=== PATIENT | female | born 1990 | race Caucasian/White ===

== ENCOUNTER 2018-08-13 22:06 | Emergency (ER) | payer MEDICAID, SELFPAY ==
[2018-08-13 22:09] VITALS: BP 119/73; PULSE 86; RESP 16; TEMP 36.6; O2SAT 100
--- NOTE | 2018-08-13 22:19 | W.ED.GENAD ---
Discharge Plan Disposition Patient Disposition: HOME Condition: Good Discharge Details Chief Complaint: EarProblem Clinical Impression: Sinusitis, Acute ear pain, Nasal polyp Primary Care Provider: None,None ED Provider: Mark Katz Home Meds and New Rx's Prescriptions: No Action multivitamin Tablet 1 tab PO DAILY RF: 0 penicillin V potassium 250 mg Tablet 1 tab PO DAILY RF: 0 Discharge Instructions Instructions: Sinusitis (ED) Additional Instructions: Please take Tylenol and Motrin for pain. Please take Claritin, Benadryl, ranitidine [id number] for sinus relief. We will set up an appointment with ENT for you. If you do not hear back from the ENT office within 2 weeks please call [facility]. If you notice any worsening of your symptoms, or any new symptoms such as drainage from your ear vomiting, diarrhea, fever, chills, shortness of breath, chest pain, numbness, weakness, or fainting , please return immediately to the emergency department for reevaluation. Please follow up with your primary care provider as soon as possible for reassessment and reevaluation. As always, it was a pleasure participating in your medical care today. Medical Decision Making This is a 27-year-old female who presents with signs and symptoms consistent with a mild upper respiratory infection, mild serous fluid behind the right tympanic membrane, and a history of mild sinus drainage 1 hour prior to arrival. No evidence of trauma. Vital signs are reassuring, no evidence of significant infection, purulent otitis media, or other abnormalities. Minimal tenderness on percussion of right maxillary sinus. With no red flags on history of physical exam, reassuring vital signs, and no other abnormalities I feel she can be safely discharged home with recommendation for [id number] antihistamines. Additionally because of the patient's nasal polyp and her risk factors of chronic allergies and asthma we will refer to ENT for follow-up evaluation and potential medication versus removal. We discussed red flags for which to return. I have extensively reviewed the treatment plan and discharge instructions with the patient and their family. I have addressed all patient concerns at this time. The patient and family was made aware of what symptoms to monitor for that would warrant a return to the emergency department. Discussed the plan with the patient and family, they demonstrate verbal understanding and agreement with our assessment and plan at this time. HPI General Date/Time Provider Initiated Documentation: 08/13/18 22:07. HPI Narrative: This is a 27-year-old female who presents today for evaluation of right ear pain and right nasal drainage. Patient states that for the last 2 days she has had mild pain in the right ear, however today she states that roughly 1 hour prior to arrival she suddenly noticed a very watery yellow thin salty tasting drainage coming from her right nostril. Out of concern for this she came in to be checked out. She does admit to mild right-sided mid sinus pain. She denies any headache, neck pain or neck stiffness. She denies any sore throat or difficulty drinking or swallowing. She denies any cough, fever or chills. Patient has been taking penicillin for the last week and a half for a dental infection and still has doses left. Past medical history is positive for chronic allergies, asthma. Denies any other complaints at this time. she denies any IV or illicit drug use. She denies any pertinent family history. Related Data Home Medications Medication Instructions Recorded Confirmed multivitamin 1 tab PO DAILY 08/13/18 08/13/18 penicillin V potassium 1 tab PO DAILY 08/13/18 Allergies Allergy/AdvReac Type Severity Reaction Status Date / Time seasonal Allergy Uncoded 08/13/18 22:11 General Stated Complaint: EarProblem BHAVIN: 4 Review of Systems Review of Systems All systems reviewed & are unremarkable except as noted in HPI and below PFSH Social History Smoking/Tobacco Use Status: Never Exam Narrative Exam Narrative: 1.Const: Well-nourished, Well-developed, appearing stated age 2.Eyes: PERRL, no conjunctival injection, and symmetrical lids. 3.ENT: Atraumatic external nose and ears. Moist MM. Neck: Symmetric, trachea midline, No thyromegaly. Patient demonstrates notable nasal polyp in the right nose. Mild congestion. No evidence of drainage or significant infection. Mucosa is pink and moist. Posterior oropharynx demonstrates no erythema, tonsillar exudate, or other abnormality. Right tympanic membrane demonstrates mild amounts of serous fluid, no evidence of purulent drainage. No evidence of rupture, no evidence of purulence for the fluid itself. No signs of infection, erythema, or edema. Osseous landmarks are well differentiated. Left tympanic membrane is normal with no signs of fluid patient demonstrates good movement of cervical neck. There is no nuchal rigidity, no nuchal tenderness. Patient is able to flex the neck without any difficulty or significant pain. Negative Kernig's and Brudzinski sign. 4.CVS: +S1/S2, No murmurs or gallops. Peripheral pulses 2+ and equal in all extremities. Brisk capillary refill in all extremities. 5.RESP: Unlabored respiratory effort. Clear to auscultation bilaterally. No wheezes rales or rhonchi 6.GI: Soft, Nontender/Nondistended, No hepatosplenomegaly. No guarding or rebound. 7.MSK: Normocephalic/Atraumatic, Extremities w/o deformity or ttp No cyanosis or clubbing, Normal movement of all extremities 8.Skin: Warm, Dry. No rashes or lesions. 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 Sensation grossly intact, no focal neurologic deficits. 10.Psych: (AAO) x3. Appropriate mood and affect Course Vital Signs Temperature 36.6 C 08/13/18 22:09 Pulse 86 08/13/18 22:09 Respiratory Rate 16 08/13/18 22:09 Blood Pressure 119/73 08/13/18 22:09 Pulse Oximetry 100 08/13/18 22:09 Temperature 36.6 C 08/13/18 22:09 Temperature Source Skin 08/13/18 22:09 Pulse 86 08/13/18 22:09 Respiratory Rate 16 08/13/18 22:09 Blood Pressure 119/73 08/13/18 22:09 Blood Pressure Position Sitting 08/13/18 22:09 Pulse Oximetry 100 08/13/18 22:09 Oxygen Delivery Method Room Air 08/13/18 22:09 Oxygen Flow Rate 0 08/13/18 22:09
[2018-08-13] MEDS: Ibuprofen 800 MG TAB PO (22:28)
[2018-08-13] MEDS: Acetaminophen 500 MG TAB 1000 MG PO (22:28)
--- NOTE | 2018-08-13 22:31 | ED.GENADUL_ITS ---
Discharge Plan Disposition Patient Disposition: HOME Condition: Good Discharge Details Chief Complaint: EarProblem Clinical Impression: Sinusitis, Acute ear pain, Nasal polyp Primary Care Provider: None,None ED Provider: Mark Katz Home Meds and New Rx's Prescriptions: No Action multivitamin Tablet 1 tab PO DAILY RF: 0 penicillin V potassium 250 mg Tablet 1 tab PO DAILY RF: 0 Discharge Instructions Instructions: Sinusitis (ED) Additional Instructions: Please take Tylenol and Motrin for pain. Please take Claritin, Benadryl, ranitidine [id number] for sinus relief. We will set up an appointment with ENT for you. If you do not hear back from the ENT office within 2 weeks please call [facility]. If you notice any worsening of your symptoms, or any new symptoms such as drainage from your ear vomiting, diarrhea, fever, chills, shortness of breath, chest pain, numbness, weakness, or fainting , please return immediately to the emergency department for reevaluation. Please follow up with your primary care provider as soon as possible for reassessment and reevaluation. As always, it was a pleasure participating in your medical care today. Medical Decision Making This is a 27-year-old female who presents with signs and symptoms consistent with a mild upper respiratory infection, mild serous fluid behind the right tympanic membrane, and a history of mild sinus drainage 1 hour prior to arrival. No evidence of trauma. Vital signs are reassuring, no evidence of significant infection, purulent otitis media, or other abnormalities. Minimal tenderness on percussion of right maxillary sinus. With no red flags on history of physical exam, reassuring vital signs, and no other abnormalities I feel she can be safely discharged home with recommendation for qldb-nct-[id number] antihistamines. Additionally because of the patient's nasal polyp and her risk factors of chroni c allergies and asthma we will refer to ENT for follow-up evaluation and potential medication versus removal. We discussed red flags for which to return. I have extensively reviewed the treatment plan and discharge instructions with the patient and their family. I have addressed all patient concerns at this time. The patient and family was made aware of what symptoms to monitor for that would warrant a return to the emergency department. Discussed the plan with the patient and family, they demonstrate verbal understanding and agreement with our assessment and plan at this time. HPI General Date/Time Provider Initiated Documentation: 08/13/18 22:07 . HPI Narrative: This is a 27-year-old female who presents today for evaluation of right ear pain and right nasal drainage. Patient states that for the last 2 days she has had mild pain in the right ear, however today she states that roughly 1 hour prior to arrival she suddenly noticed a very watery yellow thin salty tasting drainage coming from her right nostril. Out of concern for this she came in to be checked out. She does admit to mild right-sided mid sinus pain. She denies any headache, neck pain or neck stiffness. She denies any sore throat or difficulty drinking or swallowing. She denies any cough, fever or chills. Patient has been taking penicillin for the last week and a half for a dental infection and still has doses left. Past medical history is positive for chronic allergies, asthma. Denies any other complaints at this time. she denies any IV or illicit drug use. She denies any pertinent family history. Related Data Home Medications Medication Instructions Recorded Confirmed multivitamin 1 tab PO DAILY 08/13/18 08/13/18 penicillin V potassium 1 tab PO DAILY 08/13/18 Allergies Allergy/AdvReac Type Severity Reaction Status Date / Time seasonal Allergy Uncoded 08/13/18 22:11 General Stated Complaint: EarProblem BHAVIN: 4 Review of Systems Review of Systems All systems reviewed & are unremarkable except as noted in HPI and below PFSH Social History Smoking/Tobacco Use Status: Never Exam Narrative Exam Narrative: 1.Const: Well-nourished, Well-developed, appearing stated age 2.Eyes: PERRL, no conjunctival injection, and symmetrical lids. 3.ENT: Atraumatic external nose and ears. Moist MM. Neck: Symmetric, trachea midline, No thyromegaly. Patient demonstrates notable nasal polyp in the right nose. Mild congestion. No evidence of drainage or significant infection. Mucosa is pink and moist. Posterior oropharynx demonstrates no erythema, tonsillar exudate, or other abnormality. Right tympanic membrane demonstrates mild amounts of serous fluid, no evidence of purulent drainage. No evidence of rupture, no evidence of purulence for the fluid itself. No signs of infection, erythema, or edema. Osseous landmarks are well differentiated. Left tympanic membrane is normal with no signs of fluid patient demonstrates good movement of cervical neck. There is no nuchal rigidity, no nuchal tenderness. Patient is able to flex the neck without any difficulty or significant pain. Negative Kernig's and Brudzinski sign. 4.CVS: +S1/S2, No murmurs or gallops. Peripheral pulses 2+ and equal in all extremities. Brisk capillary refill in all extremities. 5.RESP: Unlabored respiratory effort. Clear to auscultation bilaterally. No wheezes rales or rhonchi 6.GI: Soft, Nontender/Nondistended, No hepatosplenomegaly. No guarding or rebound. 7.MSK: Normocephalic/Atraumatic, Extremities w/o deformity or ttp No cyanosis or clubbing, Normal movement of all extremities 8.Skin: Warm, Dry. No rashes or lesions. 9.Neuro: subcontract administrator II-XII grossly intact. Sensation grossly intact, no focal neurologic deficits. 10.Psych: (AAO) x3. Appropriate mood and affect Course Vital Signs Temperature 36.6 C 08/13/18 22:09 Pulse 86 08/13/18 22:09 Respiratory Rate 16 08/13/18 22:09 Blood Pressure 119/73 08/13/18 22:09 Pulse Oximetry 100 08/13/18 22:09 Temperature 36.6 C 08/13/18 22:09 Temperature Source Skin 08/13/18 22:09 Pulse 86 08/13/18 22:09 Respiratory Rate 16 08/13/18 22:09 Blood Pressure 119/73 08/13/18 22:09 Blood Pressure Position Sitting 08/13/18 22:09 Pulse Oximetry 100 08/13/18 22:09 Oxygen Delivery Method Room Air 08/13/18 22:09 Oxygen Flow Rate 0 08/13/18 22:09
--- NOTE | 2018-08-14 09:19 | PDOC.ERCMPRO ---
Care Management Progress Note 08/14-Dr. Katz requested assistance with an ENT f/u for nasal polyps within one month. Referral faxed to ENT this am.
== END 2018-08-13 22:36 | disposition home or self-care (01) ==
LOC: ER 22:35
PROVIDERS: Emergency Provider Student in an Organized Health Care Education/Training Program
DX: J01.90 Acute sinusitis, unspecified (principal); H92.01 Otalgia, right ear; J33.9 Nasal polyp, unspecified
CPT/HCPCS: 99282

== ENCOUNTER 2019-11-24 04:03 | Emergency (ER) | payer SELFPAY ==
[2019-11-24 04:09] VITALS: BP 104/68; PULSE 93; RESP 16; TEMP 36.7; O2SAT 98
--- NOTE | 2019-11-24 04:27 | ED.GENADUL_ITS ---
Discharge Plan Disposition Patient Disposition: HOME Condition: Stable Discharge Details Chief Complaint: DentalOral Clinical Impression: Dental infection Primary Care Provider: None,None ED Provider: Hayes Sharp Home Meds and New Rx's Prescriptions: New penicillin V potassium 500 mg tablet 500 mg PO QID Qty: 27 RF: 0 No Action multivitamin Tablet 1 tab PO DAILY RF: 0 Discharge Instructions Instructions: Dental Abscess (ED) Additional Instructions: Please take ibuprofen over the counter. Take 600mg by mouth every 6 hours as needed for pain. Please take acetaminophen (tylenol) - 650mg every 6 hours by mouth as needed for pain. Please take penicillin as prescribed. Be sure to complete the full course. Please follow-up with your dentist. Call today. Return to the ER for any worsening or new concerning symptoms. Discharge Data Discharge Date/Time-TO BE ENTERED AT DEPARTURE: 11/24/19 05:30 Medical Decision Making 29-year-old female here with left upper molar chronic dental decay, now with dental infection. Patient is not septic appearing. No indication for incision and drainage. Patient was given a dose of penicillin, ibuprofen and topical benzocaine. Periapical dental block was performed: Consent: verbal, indication: Pain, 1 mL lidocaine 1% was injected superior left posterior molar gumline, patient did not tolerate procedure well and refused additional injection. Plan to treat with full course of penicillin and have the patient follow-up with her dentist. I explained importance of timely follow-up. She plans to call her dentist later today when the office opens. I encouraged to return to the ED immediately for any worsening or new concerning symptoms. Usual and customary discharge instructions were provided. HPI General Mode of arrival: ambulatory . Date/Time Provider Initiated Documentation: 11/24/19 04:14 . Limitations to Documentation: no limitations . Information obtained by: patient . HPI Narrative: 29-year-old female presents with chief complaint of dental pain. Patient notes left upper molar dental pain that started yesterday morning and persisted all day yesterday. Much worse this morning. Pain is described as a severe ache. She has associated mild left facial swelling. No associated fever. Patient notes that she has chronic intermittent issues with left upper molar. It has been infected in the past. Last infection was about a year ago responded to antibiotics. Related Data Home Medications Medication Instructions Recorded Confirmed multivitamin 1 tab PO DAILY 08/13/18 11/24/19 penicillin V potassium 500 mg PO QID #27 tab 11/24/19 Previous Rx's Medication Instructions Recorded penicillin V potassium 500 mg PO QID #27 tab 11/24/19 Allergies Allergy/AdvReac Type Severity Reaction Status Date / Time seasonal Allergy Uncoded 11/24/19 04:13 General Stated Complaint: DentalOral BHAVIN: 5 Review of Systems Constitutional Constitutional: Denies fever(s) ENT Ears, Nose, Mouth, and Throat: Reports as per HPI [facility] Medical History Sinusitis with nasal polyps (Acute) Social History Smoking/Tobacco Use Status: Never Alcohol Intake: never Drug use: Never Do you feel safe at home: Yes Do you feel safe in your relationship?: Yes Exam Const General: cooperative and no acute distress HENMT Face and sinus: no fluctuance and no sinus tenderness Mouth: moist mucous membranes and other (No trismus) Teeth and gingiva: other (Chronic dental decay left upper molar, no fluctuance, ttp) Throat: posterior oropharynx normal Eyes EOM: EOM intact bilaterally Neck Neck: No submandibular swelling Lymphatic: no lymphadenopathy noted Neuro General: patient alert and patient awake Course Vital Signs Vital signs: Vital Signs Temperature 36.7 C 11/24/19 04:09 Pulse 93 H 11/24/19 04:09 Respiratory Rate 16 11/24/19 04:09 Blood Pressure 104/68 11/24/19 04:09 Pulse Oximetry 98 11/24/19 04:09 Temperature 36.7 C 11/24/19 04:09 Pulse 93 H 11/24/19 04:09 Respiratory Rate 16 11/24/19 04:09 Respiratory Effort Non-Labored 11/24/19 04:14 Blood Pressure 104/68 11/24/19 04:09 Pulse Oximetry 98 11/24/19 04:09 Pain Level 10 11/24/19 04:14
[2019-11-24] MEDS: Penicillin V POTASSIUM 500 MG TAB PO (04:31)
[2019-11-24] MEDS: Ibuprofen 600 MG TAB PO (04:31)
[2019-11-24] MEDS: Benzocaine 20% Gel 30 GM JAR MM (04:32)
[2019-11-24] MEDS: Lidocaine 1% Multi-Dose 50 ML VIAL IJ (05:28)
== END 2019-11-24 05:30 | disposition home or self-care (01) ==
PROVIDERS: Emergency Provider Student in an Organized Health Care Education/Training Program
DX: R22.0 Localized swelling, mass and lump, head (principal); K04.7 Periapical abscess without sinus
CPT/HCPCS: 64450

== ENCOUNTER 2019-11-24 23:06 | Emergency (ER) | payer SELFPAY ==
[2019-11-24 23:10] VITALS: BP 107/75; PULSE 69; RESP 16; TEMP 36.6; O2SAT 98
--- NOTE | 2019-11-24 23:27 | ED.GENADUL_ITS ---
Discharge Plan Disposition Patient Disposition: HOME Condition: Stable Discharge Details Chief Complaint: DentalOral Clinical Impression: Dental infection Primary Care Provider: None,None ED Provider: Jose Nascimento Home Meds and New Rx's Prescriptions: New clindamycin HCl 300 mg capsule 300 mg PO Q8H Qty: 30 RF: 0 No Action multivitamin Tablet 1 tab PO DAILY RF: 0 penicillin V potassium 500 mg tablet 500 mg PO QID Qty: 27 RF: 0 Discharge Instructions Instructions: Dental Abscess (ED) Additional Instructions: I recommend alternate between warm and cool compresses every 2 hours for 20 minutes. Salt water gargles as tolerated. You have only been on the penicillin for less than 24 hours and I believe it is perfectly reasonable to continue the penicillin for the next 24-36 hours and reassess. If you are not getting any improvement at that timeframe I do believe starting clindamycin is reasonable. Hjij-hbz-kltyxsm Tylenol and/or Motrin as directed for discomfort. Please watch for new or worsening symptoms and return to the ER for any concerns. I do recommend reaching out to your dentist tomorrow for prompt outpatient reevaluation Medical Decision Making Patient is presenting twice in the past 24 hours for a worsening dental infection. She appears well, nontoxic. She is afebrile, satting 98% on room air. No evidence of trismus. There is no obvious pointing abscess. She is able to speak in full sentences, no respiratory distress, manages her own secretions no difficulty. Had a long discussion regarding her symptoms. Her dentist did recommend reevaluation and possibly changing her antibiotics. I did explain that penicillin VK was perfectly appropriate and it is very early in her treatment to know whether or not the antibiotic will be appropriate or not. Discussed options such as continuing her penicillin VK for the next 24-36 hours, or discontinuing right now initiating clindamycin therapy. She will continue the penicillin and I will provide a prescription for clindamycin so that she is not improving she has the prescription. We discussed ulcerating between cool and/or warm compress as well as [id number] medication such as Tylenol and/or Motrin. She was comfortable this plan and had no additional questions or concerns. We discussed the importance of returning to the ER for new or worsening symptoms, otherwise contacting her dentist tomorrow. Medical Records Medical records reviewed: Yes I reviewed the patient's medical records. HPI General Mode of arrival: ambulatory . Date/Time Provider Initiated Documentation: 11/24/19 23:16 . Limitations to Documentation: no limitations . Information obtained by: patient . HPI Narrative: This is a 29-year-old female presenting for day and 1/2-2-day history of left upper dental discomfort. She was seen late last night early this morning for the same, placed on penicillin VK for dental infection. Reports that she has taken 3 or 4 doses so far. Since that time she feels as though the pain is getting worse and it now appears to be more swollen. She feels a mild global headache as well as nausea without vomiting. She reports that she did look up her symptoms on the Internet and reports that she does not want to from a dental infection. She contacted her dentist this evening who advised coming to the ER for reevaluation. She denies fever, chest pain, shortness of breath. She has no difficulty speaking or swallowing. Related Data Home Medications Medication Instructions Recorded Confirmed multivitamin 1 tab PO DAILY 08/13/18 11/24/19 clindamycin HCl 300 mg PO Q8H #30 cap 11/24/19 penicillin V potassium 500 mg PO QID #27 tab 11/24/19 11/24/19 Previous Rx's Medication Instructions Recorded clindamycin HCl 300 mg PO Q8H #30 cap 11/24/19 penicillin V potassium 500 mg PO QID #27 tab 11/24/19 Allergies Allergy/AdvReac Type Severity Reaction Status Date / Time seasonal Allergy Uncoded 11/24/19 23:13 General Stated Complaint: DentalOral BHAVIN: 4 Review of Systems Constitutional Constitutional: Denies fever(s) and Reports headache(s) Eyes Eyes: Denies eye discharge ENT Ears, Nose, Mouth, and Throat: Reports headache(s), Denies neck pain, Denies sinus pressure and Denies sore throat Cardiovascular Cardiovascular: Denies chest pain and Denies dyspnea Respiratory Respiratory: Denies cough and Denies dyspnea Gastrointestinal Gastrointestinal: Denies abdominal pain, Reports nausea and Denies vomiting Musculoskeletal Musculoskeletal: Denies neck pain Integumentary/Breasts Skin/Breast: Denies rash Neurologic Neurologic: Reports headache(s) [facility] Medical History Sinusitis with nasal polyps (Acute) Social History Smoking/Tobacco Use Status: Never Alcohol Intake: never Drug use: Never Substance use type: does not use Do you feel safe at home: Yes Do you feel safe in your relationship?: Yes Exam Const General: cooperative, healthy appearing, comfortable, no acute distress and anxious Orientation: alert, awake and oriented x3 HENMT Head: normal to inspection, normocephalic and atraumatic Ears: external ears normal, TM's normal bilaterally and EAC's normal General nose exam: external nose normal Face images: 1. Minimal swelling, discomfort. There is no erythema, induration, fluctuance or pointing abscess. Mouth: moist mucous membranes Teeth and gingiva: poor dentition (Throughout) and other (Left superior front molar, decayed to gumline, tenderness, no trismus) Throat: posterior oropharynx normal Eyes Conjunctivae: conjunctivae normal Neck Neck: normal visual inspection, full ROM, trachea midline, supple and lymphadenopathy (Left cervical, superior, anterior, shotty) Resp Effort & Inspection: normal respiratory effort and able to speak in complete sentences Auscultation: clear to auscultation bilaterally Cardio Rate: regular rate Rhythm: regular rhythm Skin General skin exam: no rashes or lesions noted Neuro General: patient alert, patient awake, moves all extremities and no focal motor deficits Sensory Exam: no sensory deficits noted Psych Appearance: grossly normal Mental Status: mental status grossly normal Course Vital Signs Vital signs: Vital Signs Temperature 36.6 C 11/24/19 23:10 Pulse 69 11/24/19 23:10 Respiratory Rate 16 11/24/19 23:10 Blood Pressure 107/75 11/24/19 23:10 Pulse Oximetry 98 11/24/19 23:10 Temperature 36.6 C 11/24/19 23:10 Temperature Source Oral 11/24/19 23:10 Pulse 69 11/24/19 23:10 Respiratory Rate 16 11/24/19 23:10 Respiratory Effort Non-Labored 11/24/19 23:13 Blood Pressure 107/75 11/24/19 23:10 Blood Pressure Position Sitting 11/24/19 23:10 Pulse Oximetry 98 11/24/19 23:10 Oxygen Delivery Method Room Air 11/24/19 23:10 Oxygen Flow Rate 0 11/24/19 23:10 Pain Level 6 11/24/19 23:10
[2019-11-24 23:46] VITALS: BP 107/75; PULSE 69; RESP 16; TEMP 36.6; O2SAT 98
--- NOTE | 2019-11-25 09:39 | NUR.NOTE ---
Nursing Note: Patient called stating that she was having blood fluid from her left nare and more swelling. Spoke with VIKRAM Jean and she stated that she needed to return. I told the patient this and she stated that she needed to find someone to take care of her toddler before coming in. Lorena Flores.
== END 2019-11-24 23:45 | disposition home or self-care (01) ==
PROVIDERS: Emergency Provider Physician Assistant
DX: R22.0 Localized swelling, mass and lump, head (principal); K04.7 Periapical abscess without sinus
CPT/HCPCS: 99283

== ENCOUNTER 2019-11-25 11:30 | Emergency (ER) | payer SELFPAY ==
[2019-11-25 11:37] VITALS: BP 108/67; PULSE 76; RESP 14; TEMP 37; O2SAT 98
--- NOTE | 2019-11-25 12:00 | ED.GENADUL_ITS ---
Discharge Plan Disposition Patient Disposition: HOME Condition: Stable Discharge Details Chief Complaint: DentalOral Clinical Impression: Dental infection Primary Care Provider: None,None ED Provider: Dyan Plata Home Meds and New Rx's Prescriptions: New clindamycin HCl 150 mg capsule 450 mg PO TID 7 Days Qty: 63 RF: 0 tramadol 50 mg tablet 50 mg PO Q6H PRN (Reason: pain) Qty: 10 RF: 0 Continued multivitamin Tablet 1 tab PO DAILY RF: 0 Mirena 20 mcg/24 hours (5 yrs) 52 mg Intrauterine Device 1 device INTRAUTERINE DIRECTED RF: 0 Discontinued clindamycin HCl 300 mg capsule 300 mg PO Q8H Qty: 30 RF: 0 penicillin V potassium 500 mg tablet 500 mg PO QID Qty: 27 RF: 0 Discharge Instructions Instructions: Dental Abscess (ED) Additional Instructions: Due to your level of pain, it is difficult to fully assess for a dental abscess, however there was no obvious dental abscess on exam today. Stop taking your penicillin today. You were given a new prescription for clindamycin with a higher dose in addition to a prescription for pain medication called tramadol which you can drop off today. You were also given a list of local dentists to call for follow-up. Once your infection is cleared, you will likely need your tooth extracted. Return immediately to the emergency department if you develop any worsening or concerning symptoms such as fevers, difficulty swallowing, worsening facial swelling or pain. Discharge Data Discharge Date/Time-TO BE ENTERED AT DEPARTURE: 11/25/19 12:36 Discharge Physician: Dyan Plata Medical Decision Making 29-year-old female currently on penicillin for dental infection presents with worsening symptoms of facial swelling and pain. No abscess noted on ED visit yesterday. Vitals within normal limits. Patient tearful but she appears nontoxic. She is speaking in full sentences. Airway intact. No submandibular swelling. No dental abscess noted. She has significant tenderness to palpation around problem tooth with surrounding edema but no obvious abscess noted. Discussed with patient that due to her level of pain it is difficult to fully palpate but that I do not feel or see an obvious abscess. Patient states she does not want any injections at this time as she could not tolerate it yesterday due to level of pain. Patient appears uncomfortable, will treat with p.o. pain medication. Urine test negative. She has a ride home. Patient advised to stop the penicillin and start the clindamycin. She was given doses here as well as for home. Care management discussed with patient at bedside as she expressed stress with lack of insurance and payment. She was given community connections and dentist referrals. Usual and customary return precautions given prior to discharge. Medical Records Medical records reviewed: Yes I reviewed the patient's medical records. HPI General Mode of arrival: ambulatory . Date/Time Provider Initiated Documentation: 11/25/19 11:32 . Limitations to Documentation: no limitations . Information obtained by: patient . HPI Narrative: Patient is a 29-year-old female who presents for reevaluation of dental infection as her symptoms are w orsening. Patient was seen here yesterday chief operator lock tender for a dental pain and diagnosed with a dental infection and started on penicillin of which she has taken several doses since yesterday. She returned last evening for worsening symptoms and was advised to continue the penicillin as there was no evidence of abscess. She was also given a prescription for clindamycin yesterday evening and was advised to start this if symptoms worsened. Patient returns today with worsening facial swelling and pain as well as a report of bloody discharge from left nares which is since resolved. She denies any fever. She has been able to eat and drink. She denies any neck pain. Related Data Home Medications Medication Instructions Recorded Confirmed multivitamin 1 tab PO DAILY 08/13/18 11/25/19 Mirena 1 device INTRAUTERINE DIRECTED 11/25/19 11/25/19 clindamycin HCl 450 mg PO TID 7 Days #63 cap 11/25/19 tramadol 50 mg PO Q6H PRN #10 tab 11/25/19 Previous Rx's Medication Instructions Recorded clindamycin HCl 450 mg PO TID 7 Days #63 cap 11/25/19 tramadol 50 mg PO Q6H PRN #10 tab 11/25/19 Allergies Allergy/AdvReac Type Severity Reaction Status Date / Time seasonal Allergy Uncoded 11/25/19 11:47 General Stated Complaint: DentalOral BHAVIN: 4 Review of Systems All systems reviewed & are unremarkable except as noted in HPI and below Constitutional Constitutional: Reports as per HPI, Denies chills and Denies fever(s) Eyes Eyes: Denies blurry vision ENT Ears, Nose, Mouth, and Throat: Reports dental pain, Denies dizziness, Reports otalgia, Denies sore throat and Denies throat swelling Cardiovascular Cardiovascular: Denies chest pain and Denies dyspnea Respiratory Respiratory: Denies cough and Denies dyspnea Gastrointestinal Gastrointestinal: Denies abdominal pain, Denies diarrhea and Denies vomiting Genitourinary Genitourinary: Denies hematuria and Denies dysuria Musculoskeletal Musculoskeletal: Denies back pain and Denies numbness Integumentary/Breasts Skin/Breast: Denies lesions and Denies rash Neurologic Neurologic: Denies dizziness, Denies localized weakness and Denies numbness Allergic/Immunologic Allergic/Immunologic: Denies throat swelling [facility] Social History Smoking/Tobacco Use Status: Never Alcohol Intake: never Drug use: Never Substance use type: does not use Do you feel safe at home: Yes Do you feel safe in your relationship?: Yes Exam Const General: cooperative, healthy appearing and no acute distress HENMT Head: normal to inspection Ears: hearing grossly normal bilaterally, external ears normal and TM's normal bilaterally General nose exam: external nose normal Face images: 1. Mild to moderate L facial swelling and tenderness to palpation. No erythema, edema, fluctuance, induration, or rash. Mouth: oral mucosae normal Teeth and gingiva: caries and poor dentition Teeth image: 1. Only base of problem tooth remaining and decayed. There is significant surrounding edema and tenderness around base of tooth mucosa. There is no obvious fluctuance or induration or obvious abscess noted. There is no pus drainage or bleeding noted around tooth. Throat: posterior oropharynx normal Eyes General: appearance normal, both eyes and all related structures Neck Neck: normal visual inspection, no lymphadenopathy, no meningeal signs, trachea midline, supple, no anterior neck swelling and No submandibular swelling Resp Effort & Inspection: normal respiratory effort and able to speak in complete sen tences Cardio Rate: regular rate Skin General skin exam: no rashes or lesions noted Neuro General: patient alert, patient awake and patient oriented x3 Motor: muscle tone normal throughout Extrem General: normal to inspection and full ROM Psych Appearance: grossly normal Affect: normal affect Course Vital Signs Vital signs: Vital Signs Temperature 98.6 F 11/25/19 11:37 Pulse 76 11/25/19 11:37 Respiratory Rate 14 11/25/19 11:37 Blood Pressure 108/67 11/25/19 11:37 Pulse Oximetry 98 11/25/19 11:37 Temperature 98.6 F 11/25/19 11:37 Temperature Source Skin 11/25/19 11:37 Pulse 76 11/25/19 11:37 Respiratory Rate 14 11/25/19 11:37 Respiratory Effort 11/25/19 11:45 Blood Pressure 108/67 11/25/19 11:37 Blood Pressure Position Sitting 11/25/19 11:37 Pulse Oximetry 98 11/25/19 11:37 Oxygen Delivery Method Room Air 11/25/19 11:37 Oxygen Flow Rate 0 11/25/19 11:37 Pain Level 7 11/25/19 11:44 Comment taking ibuprofen and tylenol 11/25/19 11:37
[2019-11-25] MEDS: Clindamycin 150 MG CAP, 12 CAPS/BTL 450 MG PO (12:24)
[2019-11-25] MEDS: traMADol 50 MG TAB PO (12:26)
[2019-11-25] MEDS: Clindamycin 150 MG CAP 450 MG PO (12:27)
--- NOTE | 2019-11-25 13:09 | PDOC.ERCMPRO ---
- If Service Date Differs Date of service: 11/25/19 Time of Service: 13:09 Care Management Progress Note CM meets with Radha at the request of ED provider. Radha is tearful and shares today is her third visit to the ED just this week, and she has no health insurance and does not know how she is going to pay the hospital bill. Radha is provided contact information for [facility], in addition to being given a patient assistance form to complete. CM also coordinates a referral to [facility], asking they outreach to client to assist her in exploring health insurance options.
== END 2019-11-25 12:36 | disposition home or self-care (01) ==
PROVIDERS: Emergency Provider Physician Assistant
DX: R68.84 Jaw pain (principal); K04.7 Periapical abscess without sinus; R22.0 Localized swelling, mass and lump, head
CPT/HCPCS: 81025; 99283

== ENCOUNTER 2022-01-08 16:54 | Outpatient (REF) | payer MEDICAID, SELFPAY | END 2022-01-08 16:55 | disposition home or self-care (01) | LOC: LBN 16:54 | PROVIDERS: Visit Provider Obstetrics & Gynecology | DX: O23.592 Infection of other part of genital tract in pregnancy, second trimester (principal); N76.0 Acute vaginitis; Z3A.18 18 weeks gestation of pregnancy | CPT/HCPCS: 87480; 87510; 87660 ==

== ENCOUNTER 2022-01-11 03:14 | Outpatient (CLI) | payer MEDICAID, SELFPAY | END 2022-01-11 03:15 | disposition home or self-care (01) | LOC: LBO 03:14 | PROVIDERS: Visit Provider Advanced Practice Midwife ==

== ENCOUNTER 2022-01-11 18:14 | Outpatient (REF) | payer MEDICAID, SELFPAY ==
[2022-01-11 19:35] LABS: *AMPHETAMINES SCREEN URINE Negative (Negative); *BARBITURATES SCREEN URINE Negative (Negative); *BENZODIAZEPINES SCREEN URINE Negative (Negative); Cannabinoids THC Negative (Negative); Cocaine Screen,Urine Negative (Negative); METHADONE URINE SCREEN Negative (Negative); OPIATES URINE SCREEN Negative (Negative)
[2022-01-11 19:41] LABS: Tricyclic Antidepressants Negative (Negative)
[2022-01-18 15:44] LABS: Buprenorphine Negative ng/mL (Cutoff: 5.0); Norbuprenorphine Negative ng/mL (Cutoff: 2.5)
== END 2022-01-11 18:15 | disposition home or self-care (01) ==
LOC: LBN 18:14
PROVIDERS: Visit Provider Advanced Practice Midwife
DX: Z34.92 Encounter for supervision of normal pregnancy, unspecified, second trimester (principal); Z3A.18 18 weeks gestation of pregnancy
CPT/HCPCS: 80307

== ENCOUNTER 2022-01-18 02:22 | Outpatient (CLI) | payer MEDICAID, SELFPAY ==
[2022-01-18 16:50] LABS: Abs Immature Grans 0.14 10^3/uL (0.0-0.06); Absolute Basophil Count 0.04 10^3/uL (0.0-0.2); Absolute Eosinophil Count 0.14 10^3/uL (0.0-0.7); Absolute Lymphocyte Count 0.96 10^3/uL (1.2-3.4); Absolute Monocyte Count 0.49 10^3/uL (0.1-0.8); Absolute Neutrophil Count 6.89 10^3/uL (1.2-6.7); Basophils % 0.5; Eosinophils % 1.6; HCT 30.9 % (36.0-46.0); HGB 10.1 g/dL (11.2-15.7); Immature Grans % 1.6; Lymphocytes % 11.1; MCH 29.8 pg (27.0-33.0); MCHC 32.7 % (32.0-36.0); MCV 91 fL (80-95); MPV 11.4 fL (8.0-11.0); Monocytes % 5.7; Neutrophils % 79.5; Platelet Count 187 10^3/uL (130-400); RBC 3.39 10^6/uL (3.93-5.22); RDW 12.6 % (11.7-14.6); RDW-SD 41.4 fL; WBC 8.66 10^3/uL (4.4-10.8)
[2022-01-18 17:47] LABS: TSH (W/Ref FT4) 1.31 uIU/mL (0.36-3.74)
[2022-01-20 09:12] LABS: HIV-1/2 Ag & Ab Screen Negative (Negative)
[2022-01-22 09:48] LABS: Hepatitis B Surface Ag Negative (Negative)
[2022-01-22 10:37] LABS: Hepatitis C Ab w Rflx HCV PCR Negative (Negative)
[2022-01-22 12:36] LABS: Varicella IgG Antibody Positive (See Note)
[2022-01-22 12:46] LABS: Rubella IgG Ab (UVM) Negative (See Note)
[2022-01-23 15:12] LABS: Syphilis IgG w/Reflex Nonreactive (Nonreactive)
== END 2022-01-18 02:23 | disposition home or self-care (01) ==
LOC: LBO 02:22
PROVIDERS: Visit Provider Advanced Practice Midwife
DX: Z34.92 Encounter for supervision of normal pregnancy, unspecified, second trimester (principal); F41.8 Other specified anxiety disorders; Z3A.19 19 weeks gestation of pregnancy
CPT/HCPCS: 36415; 86787; 86803; 86850; 86900; 86901; 87340; 87389; 84443; 85025; 86762; 86780

== ENCOUNTER 2022-02-09 02:25 | Outpatient (CLI) | payer MEDICAID, SELFPAY ==
[2022-02-09 17:09] LABS: Vitamin B12 206 pg/mL (193-986)
== END 2022-02-09 02:26 | disposition home or self-care (01) ==
LOC: LBO 02:25
PROVIDERS: Visit Provider Advanced Practice Midwife
DX: O99.012 Anemia complicating pregnancy, second trimester (principal); Z3A.23 23 weeks gestation of pregnancy
CPT/HCPCS: 36415; 82607

== ENCOUNTER 2022-02-09 18:46 | Outpatient (REF) | payer MEDICAID, SELFPAY ==
[2022-02-13 07:21] LABS: Chlamydia Result Negative (Negative); GC Result Negative (Negative)
== END 2022-02-09 18:47 | disposition home or self-care (01) ==
LOC: LBN 18:46
PROVIDERS: Visit Provider Advanced Practice Midwife
DX: Z34.92 Encounter for supervision of normal pregnancy, unspecified, second trimester (principal); Z3A.23 23 weeks gestation of pregnancy
CPT/HCPCS: 87491; 87591

== ENCOUNTER 2022-02-15 15:44 | Emergency (ER) | payer MEDICAID, SELFPAY ==
[2022-02-15 15:50] VITALS: BP 112/60; PULSE 81; RESP 18; TEMP 36.9; O2SAT 100
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
== END 2022-02-15 16:49 | disposition home or self-care (01) ==
PROVIDERS: Emergency Provider Physician Assistant
DX: O26.52 Maternal hypotension syndrome, second trimester (principal); O09.292 Supervision of pregnancy with other poor reproductive or obstetric history, second trimester; Z3A.22 22 weeks gestation of pregnancy
CPT/HCPCS: 99281; 99282

== ENCOUNTER 2022-03-16 01:09 | Outpatient (CLI) | payer MEDICAID, SELFPAY ==
[2022-03-16 14:41] LABS: HGB 9.5 g/dL (11.2-15.7); MCH 30.4 pg (27.0-33.0); MCHC 33.9 % (32.0-36.0); MCV 90 fL (80-95); MPV 11.4 fL (8.0-11.0); Platelet Count 146 10^3/uL (130-400); RBC 3.12 10^6/uL (3.93-5.22); RDW 12.5 % (11.7-14.6); RDW-SD 40.4 fL; WBC 7.79 10^3/uL (4.4-10.8)
== END 2022-03-16 01:10 | disposition home or self-care (01) ==
LOC: LBO 01:09
PROVIDERS: Visit Provider Advanced Practice Midwife
DX: O99.013 Anemia complicating pregnancy, third trimester (principal); O26.893 Other specified pregnancy related conditions, third trimester; Z67.91 Unspecified blood type, Rh negative; Z3A.28 28 weeks gestation of pregnancy
CPT/HCPCS: 36415; 85027; 86850; 90384

== ENCOUNTER 2022-03-19 09:21 | Outpatient (RCR) | payer MEDICAID, SELFPAY ==
[2022-03-19] MEDS: Normal Saline Flush 10 ML SYR IVP (12:42)
[2022-03-19] MEDS: IRON SUCROSE COMPLEX 200 MG in Normal Saline 100 ML 440 MG IVPB (12:42)
== END 2022-03-21 23:59 | disposition home or self-care (01) ==
LOC: INF 09:21
PROVIDERS: Visit Provider Advanced Practice Midwife
DX: O99.012 Anemia complicating pregnancy, second trimester (principal); O98.512 Other viral diseases complicating pregnancy, second trimester
CPT/HCPCS: 96365; J1756

== ENCOUNTER 2022-04-02 03:40 | Outpatient (CLI) | payer MEDICAID, SELFPAY ==
[2022-04-02 12:37] LABS: Glucose,1 Hr (Glucola) 103 mg/dL (80-140)
== END 2022-04-02 03:41 | disposition home or self-care (01) ==
LOC: LBO 03:40
PROVIDERS: Advanced Practice Midwife; Visit Provider Advanced Practice Midwife
DX: Z34.93 Encounter for supervision of normal pregnancy, unspecified, third trimester (principal)
CPT/HCPCS: 36415; 82950

== ENCOUNTER 2022-04-10 01:17 | Outpatient (RCR) | payer MEDICAID, SELFPAY ==
[2022-03-27 08:59] LABS: HCT 29.9 % (36.0-46.0); HGB 9.9 g/dL (11.2-15.7)
[2022-03-27] MEDS: Normal Saline Flush 10 ML SYR IVP (09:05)
[2022-03-27] MEDS: IRON SUCROSE COMPLEX 200 MG in Normal Saline 100 ML 440 MG IVPB (09:22)
[2022-04-03] MEDS: Normal Saline Flush 10 ML SYR IVP (09:08)
[2022-04-03 09:22] LABS: HGB 10.1 g/dL (11.2-15.7)
[2022-04-03] MEDS: IRON SUCROSE COMPLEX 200 MG in Normal Saline 100 ML 440 MG IVPB (09:38)
[2022-04-10] MEDS: Normal Saline Flush 10 ML SYR IVP (09:01)
[2022-04-10 09:27] LABS: HCT 33.4 % (36.0-46.0); HGB 11.2 g/dL (11.2-15.7)
== END 2022-04-20 23:59 | disposition home or self-care (01) ==
LOC: INF 01:17
PROVIDERS: Visit Provider Advanced Practice Midwife
DX: O99.013 Anemia complicating pregnancy, third trimester (principal)
CPT/HCPCS: 36415; 96365; 85014; 85018; J1756

== ENCOUNTER → 2022-04-16 01:59 | Outpatient (CLI) | payer MEDICAID, SELFPAY ==
--- NOTE | 2022-04-16 07:15 | DI.US_ITS ---
Exam(s) US OB GAUTAM WEIGHT EXAM: US OB GAUTAM WEIGHT CLINICAL HISTORY: covid infection at 23 weeks gestation,U07.1,z34.90. TECHNIQUE: Transabdominal obstetrical ultrasound performed. COMPARISON: No exams were available for comparison FINDINGS:: Number of fetuses: One. position: Vertex. Placental location: Posterior. No evidence of previa. BIOMETRIC DATA: BPD: 79mm = 31+5 weeks HC: 294 mm = 32+3 weeks AC: 266mm = 30+ 5 weeks FL: 60 mm = 31+3 weeks EFW: 1717 Gms = 12.4% Composite Age: 31+4 weeks EDC by ultrasound: 14 June 2022 Heart Rate: 143 BPM Amniotic fluid index: 8.2 cm. Amount of fluid is visually within normal limits. IMPRESSION: size and weight are within low normal range. DATA REPOSITORY:
== END ==
PROVIDERS: Visit Provider Advanced Practice Midwife
DX: Z34.93 Encounter for supervision of normal pregnancy, unspecified, third trimester; Z86.16 Personal history of COVID-19
CPT/HCPCS: 76816

== ENCOUNTER 2022-05-10 13:08 | Outpatient (REF) | payer MEDICAID, SELFPAY ==
[2022-05-10 13:42] LABS: *AMPHETAMINES SCREEN URINE Negative (Negative); *BARBITURATES SCREEN URINE Negative (Negative); *BENZODIAZEPINES SCREEN URINE Negative (Negative); Cannabinoids THC Negative (Negative); Cocaine Screen,Urine Negative (Negative); METHADONE URINE SCREEN Negative (Negative); OPIATES URINE SCREEN Negative (Negative)
[2022-05-10 13:46] LABS: Tricyclic Antidepressants Negative (Negative)
[2022-05-17 11:25] LABS: Buprenorphine Negative ng/mL (Cutoff: 5.0); Norbuprenorphine Negative ng/mL (Cutoff: 2.5)
== END 2022-05-10 13:09 | disposition home or self-care (01) ==
LOC: LBN 13:08
PROVIDERS: Visit Provider Advanced Practice Midwife
DX: Z34.93 Encounter for supervision of normal pregnancy, unspecified, third trimester (principal)
CPT/HCPCS: 80307; 80348

== ENCOUNTER → 2022-05-16 02:24 | Outpatient (CLI) | payer MEDICAID, SELFPAY ==
--- NOTE | 2022-05-16 | DI.US_ITS ---
Exam(s) US OB GAUTAM UMBILICAL ARTERY EXAM: US OB GAUTAM UMBILICAL ARTERY CLINICAL HISTORY: UMBILICAL ARTERY DOPPLER DONE DUE TO WEIGHT TECHNIQUE: Ultrasound performed using standard protocol. COMPARISON: No exams were available for comparison FINDINGS: Umbilical artery Doppler evaluation was obtained to complement today's 3rd trimester protocol Ob ultr asound due to estimated weight less than 5 percent for predicted gestational age. Resistive index is calculated at 0.66, pulsatility index is calculated at 1.1. The findings are in t he normal range for the predicted gestational age of 34 weeks IMPRESSION: DATA REPOSITORY:
--- NOTE | 2022-05-16 07:30 | DI.US_ITS ---
Exam(s) US OB GAUTAM WEIGHT EXAM: US OB GAUTAM WEIGHT CLINICAL HISTORY: history of IUGR baby,Z87.59 TECHNIQUE: Ultrasound performed using standard protocol. COMPARISON: No exams were available for comparison FINDINGS: Ob ultrasound was performed utilizing 3rd trimester protocol. biometry is consistent with gest ational age of 34 weeks 2 days and EDC of June 25. The estimated weight is 2310 grams. There is visually a mildly reduced quantity of amniotic fluid and the GAUTAM is 8 period heart rate is 124 BPM. Fetus is in cephalic presentation. IMPRESSION: DATA REPOSITORY:
== END ==
PROVIDERS: Visit Provider Advanced Practice Midwife
DX: Z87.59 Personal history of other complications of pregnancy, childbirth and the puerperium (principal)
CPT/HCPCS: 76816; 76820

== ENCOUNTER 2022-05-16 13:23 | Outpatient (CLI) | payer MEDICAID, SELFPAY ==
[2022-05-16 13:49] VITALS: BP 105/56; PULSE 80; TEMP 36.7
[2022-05-16 13:54] VITALS: BP 105/56; PULSE 80
--- NOTE | 2022-05-16 14:17 | PDOC.NST_ITS ---
Date of service: 05/16/22 Time of Service: 14:17 NST Evaluation Reason for NST Reasons for Nonstress Test: INTRA-UTERINE GROWTH RES Gestational Age Gestational Age in Weeks and Days: 36 Weeks and 4Days Test and Monitor Explained Test/Monitor Explained: Test Explained and Monitor Explained Vital Signs Blood Pressure: 105/56 Pulse: 80 Temperature: 98.1 F NST Information Date on Monitor: 05/16/22 Time on Monitor: 13:46 Date off Monitor: 05/16/22 Time off Monitor: 14:07 Total Time on Monitor: 21 NST Interventions: PO Hydration NST Evaluation Patient States Movement: Present FHR Baseline: 135 Variability: Moderate 6-25 bpm Accelerations: 15x15 Decelerations: None NST Results: Reactive Note GAUTAM and Other (growth US done with dopplers in DI prior to arrival for NST) NST Note Note: Radha presents for NST due to getal growth lag of approximately 2 weeks by US today. Normal dopplers per review of US reports by our OB Physicians today. EFW 2310g, GAUTAM 8. Radha has had 2 previous babies who were SGA and was hoping to avoid interventions this time. She agrees to doing 2 doses of Betamethasone 24 hours apart and will consider option of induction of labor on Saturday this week. We discussed that if she chooses expectant management that we will be encouraging twice week NST and GAUTAM/Doppler weekly. If those reports worsen that would mean intervention would be needed more urgently and may increase the risk of baby not doing as well. She verbalizes understanding and agrees to consider this and review with video games storywriter 05/17 when she presents for second dose of steroids. I will also notify our pediatric team of Radha's current US results and our plan. Patient denies further questions at this time. MANNY NST Reviewed and Verified by: Vanessa Santiago
[2022-05-16 14:23] VITALS: BP 105/56; PULSE 80; TEMP 36.7
[2022-05-16] MEDS: Betamet Acet/Betamet Na Ph Inj. 30 MG/5 ML 12 MG IM (14:25)
== END 2022-05-16 14:30 | disposition home or self-care (01) ==
LOC: BCD 13:23 → OBS 13:48
PROVIDERS: Visit Provider Advanced Practice Midwife
DX: Z36.85 Encounter for antenatal screening for Streptococcus B (principal); O36.5930 Maternal care for other known or suspected poor fetal growth, third trimester, not applicable or unspecified; Z3A.36 36 weeks gestation of pregnancy
CPT/HCPCS: 59025; 87081; J0702

== ENCOUNTER 2022-05-17 12:35 | Outpatient (CLI) | payer MEDICAID, SELFPAY | END 2022-05-17 15:05 | disposition home or self-care (01) | LOC: BCD 12:37 → OBS 14:44 | PROVIDERS: Visit Provider Advanced Practice Midwife | DX: O36.5930 Maternal care for other known or suspected poor fetal growth, third trimester, not applicable or unspecified (principal); Z3A.36 36 weeks gestation of pregnancy | CPT/HCPCS: 96372; J0702 ==

== ENCOUNTER 2022-05-19 13:00 | Outpatient (CLI) | payer MEDICAID, SELFPAY ==
[2022-05-19 13:14] VITALS: BP 105/70; PULSE 86; TEMP 36.9
[2022-05-19 13:31] VITALS: BP 105/70; PULSE 86
--- NOTE | 2022-05-19 14:13 | W.OBNST ---
Date of service: 05/19/22 Time of Service: 14:13 NST Evaluation Reason for NST Reasons for Nonstress Test: INTRA-UTERINE GROWTH RES Gestational Age Gestational Age in Weeks and Days: 37 Weeks and 0Days Test and Monitor Explained Test/Monitor Explained: Test Explained, Monitor Explained and Patient Verbalized Understanding Vital Signs Blood Pressure: 105/70 Pulse: 86 Temperature: 98.4 F NST Information Time on Monitor: 13:10 Date off Monitor: 05/19/22 Time off Monitor: 13:33 NST Interventions: PO Hydration Contraction Frequency: irreg NST Evaluation Patient States Movement: Present FHR Baseline: 135 Variability: Moderate 6-25 bpm Accelerations: 15x15 Decelerations: None NST Results: Reactive Note Biophysical Profile (cephalic prominence deeply engaged ROP) Results of Biophysical Profile: 02/26 with GAUTAM=12 NST Note Note: NST's scheduled x2/wk, & Sat, Weekly GAUTAM planned, next due next Saturday FKC's reviewed with pt Next PN appt Saturday after NST NST Reviewed and Verified by: Esha Daniels
[2022-05-19 14:16] VITALS: BP 105/70; PULSE 86; TEMP 36.9
== END 2022-05-19 13:55 | disposition home or self-care (01) ==
LOC: BCD 13:01 → OBS 13:12
PROVIDERS: Visit Provider Advanced Practice Midwife
DX: O36.5930 Maternal care for other known or suspected poor fetal growth, third trimester, not applicable or unspecified (principal); Z3A.37 37 weeks gestation of pregnancy
CPT/HCPCS: 59025

== ENCOUNTER 2022-05-22 07:09 | Outpatient (CLI) | payer MEDICAID, SELFPAY ==
[2022-05-22 09:02] VITALS: BP 104/64; PULSE 92; TEMP 36.7
[2022-05-22 09:09] VITALS: BP 104/64; PULSE 92
--- NOTE | 2022-05-22 09:35 | W.OBNST ---
Date of service: 05/22/22 Time of Service: 09:35 NST Evaluation Reason for NST Reasons for Nonstress Test: INTRA-UTERINE GROWTH RES Gestational Age Gestational Age in Weeks and Days: 37 Weeks and 3Days Test and Monitor Explained Test/Monitor Explained: Test Explained and Monitor Explained Vital Signs Blood Pressure: 104/64 Pulse: 92 Temperature: 98.1 F NST Information Date on Monitor: 05/22/22 Time on Monitor: 09:08 Date off Monitor: 05/22/22 Time off Monitor: 09:31 Total Time on Monitor: 23 NST Interventions: PO Hydration NST Evaluation Patient States Movement: Present FHR Baseline: 135 Variability: Moderate 6-25 bpm Accelerations: 15x15 Decelerations: None NST Results: Reactive Note NST Note Note: NST is reactive and reassuring. She continues to decline induction of labor. She will return 05/[address] Oconnor and NST with Vanessa Ferrell CNM. NST Reviewed and Verified by: Vanessa Santiago
[2022-05-22 09:36] VITALS: BP 104/64; PULSE 92; TEMP 36.7
== END 2022-05-22 09:34 | disposition home or self-care (01) ==
LOC: BCD 07:20 → OBS 09:00
PROVIDERS: Visit Provider Advanced Practice Midwife
DX: O36.5930 Maternal care for other known or suspected poor fetal growth, third trimester, not applicable or unspecified (principal); Z3A.37 37 weeks gestation of pregnancy
CPT/HCPCS: 59025

== ENCOUNTER 2022-05-25 06:04 | Outpatient (CLI) | payer MEDICAID, SELFPAY ==
[2022-05-25 08:28] VITALS: BP 104/65; PULSE 92; TEMP 37.1
[2022-05-25 08:37] VITALS: BP 104/65; PULSE 92
[2022-05-25 09:09] VITALS: BP 104/65; PULSE 92; TEMP 37.1
--- NOTE | 2022-05-25 09:34 | W.OBNST ---
Date of service: 05/25/22 Time of Service: 09:34 NST Evaluation Reason for NST Reasons for Nonstress Test: INTRA-UTERINE GROWTH RES Gestational Age Gestational Age in Weeks and Days: 37 Weeks and 6Days Test and Monitor Explained Test/Monitor Explained: Test Explained, Monitor Explained and Patient Verbalized Understanding Vital Signs Blood Pressure: 104/65 Pulse: 92 Temperature: 98.8 F NST Information Date on Monitor: 05/25/22 Time on Monitor: 08:29 Date off Monitor: 05/25/22 Time off Monitor: 09:06 Total Time on Monitor: 37 NST Interventions: PO Hydration Contraction Frequency: x1 NST Evaluation Patient States Movement: Present FHR Baseline: 135 Variability: Moderate 6-25 bpm Accelerations: 15x15 Decelerations: None NST Results: Reactive Note NST Note Note: GAUTAM performed by Dr. Oconnor. GAUTAM is 10. SVE 1.5 cms/50%/-` station. Signs of labor reviewed. IOL scheduled per Dr Oconnor's recommendation. Radha robin if spontaneous labor does not occur. NST Reviewed and Verified by: Vanessa Ferrell
[2022-05-25 09:36] VITALS: BP 104/65; PULSE 92; TEMP 37.1
--- NOTE | 2022-05-25 10:05 | W.OBNST ---
Date of service: 05/25/22 Time of Service: 10:07 NST Evaluation Reason for NST Reasons for Nonstress Test: INTRA-UTERINE GROWTH RES Gestational Age Gestational Age in Weeks and Days: 37 Weeks and 6Days Test and Monitor Explained Test/Monitor Explained: Test Explained, Monitor Explained and Patient Verbalized Understanding Vital Signs Blood Pressure: 104/65 Pulse: 92 Temperature: 98.8 F NST Information Date on Monitor: 05/25/22 Time on Monitor: 08:29 Date off Monitor: 05/25/22 Time off Monitor: 09:06 Total Time on Monitor: 37 NST Interventions: PO Hydration Contraction Frequency: x1 Comments: BPP = 10/10. Largest fluid pocket 4.42cm. GAUTAM 10.4cm. Breathing motion, gross and fine movements appreciated. NST Evaluation Patient States Movement: Present FHR Baseline: 135 Variability: Moderate 6-25 bpm Accelerations: 15x15 Decelerations: None NST Results: Reactive Note GAUTAM Results of GAUTAM: 10.4cm. VTX presentation NST Note Note: I performed the biophysical profile. Patient is open to delivery within the next week. She is hoping for spontaneous labor rather than induction of labor. She will follow-up on Saturday05/29/2022 for repeat NST. NST Reviewed and Verified by: Maria R Oconnor
[2022-05-25 10:11] VITALS: BP 104/65; PULSE 92; TEMP 37.1
== END 2022-05-25 09:20 | disposition home or self-care (01) ==
LOC: BCD 06:05 → OBS 08:23
PROVIDERS: Visit Provider Advanced Practice Midwife
DX: O36.5930 Maternal care for other known or suspected poor fetal growth, third trimester, not applicable or unspecified (principal); Z3A.37 37 weeks gestation of pregnancy
CPT/HCPCS: 59025

== ENCOUNTER 2022-05-28 14:50 | Outpatient (CLI) | payer MEDICAID, SELFPAY ==
[2022-05-28 16:21] VITALS: BP 118/78; PULSE 90
[2022-05-28 16:30] VITALS: BP 118/78; PULSE 90; TEMP 36.8
[2022-05-28 16:55] LABS: ROM Plus Negative
[2022-05-28 17:06] VITALS: BP 118/78; PULSE 90; TEMP 36.8
--- NOTE | 2022-05-28 17:25 | W.OBNST ---
Date of service: 05/28/22 Time of Service: 17:26 NST Evaluation Reason for NST Reasons for Nonstress Test: FALSE LABOR Reason for NST Other: question rupture Gestational Age Gestational Age in Weeks and Days: 38 Weeks and 2Days Test and Monitor Explained Test/Monitor Explained: Test Explained, Monitor Explained and Patient Verbalized Understanding Vital Signs Blood Pressure: 118/78 Pulse: 90 Temperature: 98.2 F NST Information Date on Monitor: 05/28/22 Time on Monitor: 16:16 Date off Monitor: 05/28/22 Time off Monitor: 16:53 Total Time on Monitor: 37 NST Interventions: PO Hydration Contraction Frequency: 4-6/irregular NST Evaluation Patient States Movement: Present FHR Baseline: 145 Variability: Moderate 6-25 bpm Accelerations: 15x15 Decelerations: None NST Results: Reactive Note NST Note Note: Radha has been experiencing contractions after working out today. She had an episode of leaking a small amount of fluid. ROM plus is negative. Neg pooling. SVE - cervix 2-3 cms/80%/-1 Signs of labor reviewed. Reactive NST. We discussed indications for induction of labor if labor does not occur spontaneously. Radha strongly wishes to avoid induction of labor. Ultrasound reports reviewed with Dr. Gurrola who recommends repeating US after two weeks to assess growth. Will plan to schedule this for 05/30/22. Radha agrees with this plan. NST Reviewed and Verified by: Vanessa Ferrell
[2022-05-28 17:34] VITALS: BP 118/78; PULSE 90; TEMP 36.8
== END 2022-05-28 17:23 ==
LOC: BCD 14:56 → OBS 14:59
PROVIDERS: Visit Provider Advanced Practice Midwife
DX: O47.1 False labor at or after 37 completed weeks of gestation (principal); Z3A.38 38 weeks gestation of pregnancy
CPT/HCPCS: 59025; 84112

== ENCOUNTER 2022-05-29 10:34 | Inpatient (IN) | payer MEDICAID, SELFPAY ==
[2022-05-29] VITALS (9 sets, daily range): BP systolic 99–128; BP diastolic 64–69; PULSE 93–114; RESP 14–18; TEMP 36.7–36.8
[2022-05-29 10:51] LABS: Source Nasal/Nares
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
[2022-05-29 10:54] LABS: HGB 11.7 g/dL (11.2-15.7); MCH 29.6 pg (27.0-33.0); MCHC 33.4 % (32.0-36.0); MCV 89 fL (80-95); Platelet Count 122 10^3/uL (130-400); RBC 3.95 10^6/uL (3.93-5.22); RDW 13.2 % (11.7-14.6); RDW-SD 42.8 fL; WBC 15.82 10^3/uL (4.4-10.8)
--- NOTE | 2022-05-29 11:01 | W.OBNST ---
Date of service: 05/29/22 Time of Service: 11:01 NST Evaluation Reason for NST Reasons for Nonstress Test: INTRA-UTERINE GROWTH RES Gestational Age Gestational Age in Weeks and Days: 38 Weeks and 3Days Test and Monitor Explained Test/Monitor Explained: Test Explained, Monitor Explained and Patient Verbalized Understanding Vital Signs Blood Pressure: 112/69 Pulse: 100 Temperature: 98.2 F NST Information Date on Monitor: 05/29/22 Time on Monitor: 10:05 Date off Monitor: 05/29/22 Time off Monitor: 10:30 Total Time on Monitor: 25 NST Interventions: PO Hydration NST Evaluation Patient States Movement: Present FHR Baseline: 140 Variability: Moderate 6-25 bpm Accelerations: 15x15 Decelerations: None NST Results: Reactive Note NST Note Note: Radha is experiencing moderate strength regular contractions. SVE cervix 3-4 cms/8-0% and 0 station, admitted in early labor. NST Reviewed and Verified by: Vanessa Ferrell
[2022-05-29 11:24] LABS: COVID-19 PCR Negative (Negative)
--- NOTE | 2022-05-29 15:08 | W.PM.OBNL1 ---
Date of service: 05/29/22 Time of Service: 15:08 Pelvic Exam Dilation: 4 Effacement (%): 80 station: 0 Cervix Position: mid Consistency: soft Pooling: Negative Contractions Monitor Mode: External Contraction Frequency(min): every 3-5 Contraction Duration(sec): 50-60 Intensity: Moderate Fetus A Monitor: Doppler Heart Rate Baseline: 140 Presentation: Vertex Variability: Moderate (6-25 BPM) Categories: Category I FHR Rhythm: Regular Characteristics: Normal Accelerations: 15 X 15 Decelerations: None Assessment and Plan Assessment and plan (1) Spontaneous onset of labor: Status: Acute Assessment and plan: continue to provide comfort measures and monitor progress in labor. Anticipate Objective Abnormal lab results 05/29/22 Range/Units 10:45 WBC 15.82 H (4.4-10.8) 10^3/uL Hct 35.0 L (36.0-46.0) % Plt Count 122 L (130-400) 10^3/uL MPV 12.0 H (8.0-11.0) fL Temp Pulse Resp BP 98.1 F 109 H 14 100/64 05/29/22 13:19 05/29/22 13:23 05/29/22 13:19 05/29/22 13:23 Laboratory Results WBC 15.82 10^3/uL (4.4-10.8) H 05/29/22 10:45 RBC 3.95 10^6/uL (3.93-5.22) 05/29/22 10:45 Hgb 11.7 g/dL (11.2-15.7) 05/29/22 10:45 Hct 35.0 % (36.0-46.0) L 05/29/22 10:45 MCV 89 fL (80-95) 05/29/22 10:45 MCH 29.6 pg (27.0-33.0) 05/29/22 10:45 MCHC 33.4 % (32.0-36.0) 05/29/22 10:45 RDW 13.2 % (11.7-14.6) 05/29/22 10:45 Plt Count 122 10^3/uL (130-400) L 05/29/22 10:45 MPV 12.0 fL (8.0-11.0) H 05/29/22 10:45 COVID-19 Source Nasal/Nares 05/29/22 10:40 SARS-CoV-2 (PCR) Negative (Negative) 05/29/22 10:40 Patient ABO/Rh A Negative 05/29/22 10:45 Antibody Screen POSITIVE 05/29/22 10:45 Antibody Identification See Comments 05/29/22 10:45 Subjective Interval history since last seen: Radha continues to experience painful contractions, irregular at times. She has been walking and using the ball and is anxious to use the tub for when that room is available. She is coping well with her contractions. Results Hemoglobin/Hematocrit: Hgb 11.7 g/dL (11.2-15.7) 05/29/22 10:45 Hct 35.0 % (36.0-46.0) L 05/29/22 10:45 Abnormal Lab Findings: Abnormal Labs 05/29/22 10:45 WBC 15.82 H Hct 35.0 L Plt Count 122 L MPV 12.0 H
[2022-05-29] MEDS: Oxytocin 10 UNITS/ML VIAL IM (23:41)
[2022-05-29] MEDS: miSOPROStol 200 MCG TAB 400 MCG SL ×2 (23:44→23:56)
[2022-05-30] VITALS (7 sets, daily range): BP systolic 84–124; BP diastolic 47–77; PULSE 102–122; RESP 16–18; TEMP 36.7–37.5; O2SAT 98
--- NOTE | 2022-05-30 00:09 | W.OBDELIVERY ---
Date of service: 05/30/22 Time of Service: 00:09 OB Labor/ Delivery Information Labor/Delivery Information Group Beta Strep: Negative Rubella Status: Nonimmune Blood Type: A- Varicella Immunity: Immune Stages of Labor Onset of Labor Date: 05/29/22 Onset of Labor Time: 07:00 ROM Baby A: 05/29/22 ROM Baby A: 22:46
--- NOTE | 2022-05-30 00:26 | OBVDS_ITS ---
Date of service: 05/30/22 Time of Service: 00:27 OB Labor/ Delivery Information Baby A Delivery Delivery Method: Spontaneaous Presentation: Vertex Amniotic Fluid: Clear Estimated Blood Loss: 750 Delivery Outcome: Liveborn Transferred: Remains with Mother Note: Radha made slow progress and was examined and was 7-8 cms. We discussed AROM and she agreed to proceed with that. However, shortly after that, membranes ruptured spontaneously for a moderate amount of clear fluid. FHTs 130s during first stage of labor. She moved to the tub which had excellent effect and she soon had an urge to bear down. FHTs were attempted in the second stage but the baby was quickly and there was a spontaneous delivery of a female delivered in MILTON position. Baby was delivered into Radha's arms and had a spontaneous cry. The cord was clamped and cut by the baby's father after delayed cord clamping. Radha moved to the bed. The placenta delivered spontaneously and appears to by intact with a three vessel cord. Pitocin 10 units IM was administered after delivery of the placenta due to bright ble eding. At that time, bleeding in the tub and with passage of the placenta was estimated at 350 cc. Uterine massage was continued and the bleeding continued for an additional QBL of 200 cc and cytotec 400 mcg was given PO. The perineum was inspected and there was a small periurethral laceration which was not bleeding and did not require repair. The baby did breastfeed well after delivery. Approximately 1 hour after delivery, there was another gush of bright bleeding. The uterus was massaged and an egg sized clot was expelled, QBL at that time was an additional 200 cc for a total EBL of 750cc. Cytotec 400 mcg was given AK. Mother and baby and father of the baby were stable and bonding well in the delivery room and there were no complications. Will continue to assess bleeding and consider IV therapy. Radha declines an IV at this time but the indications for IV fluids were discussed with Radha. Providers Nurse Insurance Claim Representative: Vanessa Ferrell Nurse: Daily Mirza Nurse: Nelida Loredo Labor/Delivery Information Number of Babies in Womb: 1 Steroids Given: None Reason Steroids Not Administered: N/A Group Beta Strep: Negative Rubella Status: Nonimmune Blood Type: A- Varicella Immunity: Immune Maternal Complications: Hemorrhage Shoulder Dystocia: No Stages of Labor Onset of Labor Date: 05/29/22 Onset of Labor Time: 07:00 ROM Baby A: 05/30/22 ROM Baby A: 22:46 ROM Total Time- Baby A: hours-1410minutes Infant Delivery Date-Baby A: 05/29/22 Infant Delivery Time-Baby A: 23:16 Placenta Delivery Date-Baby A: 05/29/22 Placenta Delivery Time-Baby A: 23:38 Labor-Stage 3 Duration: 22 minutes Total Length of Labor-Baby A: 16 hours and 16 minutes Placenta Cultured: No Placenta Status: Delivered Baby A Gender: Female Gestational Status: Early Term (37-38.6 wks) Gestational Age in Weeks/Days: 38 Weeks and 3 Days weight: 5 lb 13.123 oz Score-1 Minute Interval(Baby A) Heart Rate-1 minute: 100 BPM or Greater Respiratory Effort- 1 minute: Spontaneous/Strong Cry Muscle Tone-1 minute: Active Movement Reflex Response-1 minute: Prompt Response Color-1 minute: Pallor or Cyanosis Total Score-1 minute: 8 Score-5 Minute Interval(Baby A) Heart Rate- 5 minute: 100 BPM or Greater Respiratory Effort-5 minute: Spontaneous/Strong Cry Muscle Tone-5 minute: Active Movement Reflex Response-5 minute: Prompt Response Color-5 minute: Bluish Hands or Feet Total Score- 5 minute: 9
[2022-05-30] MEDS: Ibuprofen 600 MG TAB PO ×2 (04:30→11:05)
[2022-05-31 07:21] LABS: HCT 30.5 % (36.0-46.0); MCH 29.8 pg (27.0-33.0); MCHC 32.8 % (32.0-36.0); MCV 91 fL (80-95); MPV 11.8 fL (8.0-11.0); Platelet Count 135 10^3/uL (130-400); RBC 3.36 10^6/uL (3.93-5.22); RDW 13.4 % (11.7-14.6); RDW-SD 44.9 fL; WBC 9.89 10^3/uL (4.4-10.8)
[2022-05-31 07:25] VITALS: BP 95/64; PULSE 93; RESP 18; TEMP 36.6; O2SAT 98
--- NOTE | 2022-05-31 08:59 | W.PM.OBPNV1 ---
Date of service: 05/30/22 Time of Service: 10:00 Assessment and Plan Assessment and plan (1) Term delivered: Status: Acute Assessment and plan: A: nml PPD1 recovery off to a good start pleased with experience P: Plan for discharge tomorrow Pt declines MMR and declines BCM Will review d/c instructions Subjective Subjective Patient comments: No complaints, Pain well controlled, Tolerating diet and Flatus present Patient's Mood: happy baby status: Doing well, Nursing well, Rooming in and Strong Bonding Observed Exam Physical Exam Vital signs: Temp Pulse Resp BP Pulse Ox 97.9 F 93 H 18 95/64 L 98 05/31/22 07:25 05/31/22 07:25 05/31/22 07:25 05/31/22 07:25 05/31/22 07:25 Vital Signs Reviewed: Yes Constitutional Constitutional: no acute distress and thin HEENT Exam HEENT Exam: Normal Neck Exam Neck Exam: Normal Breast Exam Bilateral: Breast Exam: Normal and Soft Nipple Exam: Normal and Uninjured Respiratory Exam Respiratory Exam: Normal Cardiovascular Exam Cardiovascular Exam: Normal Abdominal Exam Abdomen: Other (soft, nontender) Fundal Exam Fundus: Below Umbilicus and Firm Exam Patient deferred: external exam Perineum: Intact Extremities Exam Extremity Exam: Normal, Full ROM and Warm to Touch Back/Spine/Pelvis Exam Back Exam: Normal Skin Exam Skin Exam: Normal Neurological Exam Neurological Exam: Normal Psychiatric Exam Psychiatric Exam: Normal Results Hemoglobin/Hematocrit: Hgb 10.0 g/dL (11.2-15.7) L 05/31/22 07:00 Hct 30.5 % (36.0-46.0) L 05/31/22 07:00 Abnormal Lab Findings: Abnormal Labs 05/29/22 05/31/22 10:45 07:00 WBC 15.82 H RBC 3.36 L Hgb 10.0 L Hct 35.0 L 30.5 L Plt Count 122 L MPV 12.0 H 11.8 H
--- NOTE | 2022-05-31 11:03 | W.PM.OBPNV1 ---
Date of service: 05/31/22 Time of Service: 11:03 Assessment and Plan Assessment and plan (1) Term delivered: Status: Acute Assessment and plan: A: nml PPD2 recovery P: Plan for discharge this morning Pt declines MMR and declines BCM Reviewed d/c instructions and copy given to pt F/up at 2 & 6 wks and as needed Subjective Subjective Patient comments: No complaints, Pain well controlled, Tolerating diet, Bowel Movement and Other (my milk is coming in already) Patient's Mood: very pleased with care, happy [place] baby status: Doing well, Nursing well, Rooming in and Strong Bonding Observed feeding status: Exclusively breast feeding Exam Physical Exam Vital signs: Temp Pulse Resp BP Pulse Ox 97.9 F 93 H 18 95/64 L 98 05/31/22 07:25 05/31/22 07:25 05/31/22 07:25 05/31/22 07:25 05/31/22 07:25 Vital Signs Reviewed: Yes Constitutional Constitutional: no acute distress and thin HEENT Exam HEENT Exam: Normal Neck Exam Neck Exam: Normal Breast Exam Bilateral: Breast Exam: Normal and Soft Respiratory Exam Respiratory Exam: Normal Cardiovascular Exam Cardiovascular Exam: Normal Abdominal Exam Abdomen: Other (soft, nontender) Fundal Exam Fundus: Below Umbilicus and Firm Exam Patient deferred: external exam Perineum: Intact Extremities Exam Extremity Exam: Normal, Full ROM and Warm to Touch Back/Spine/Pelvis Exam Back Exam: Normal Skin Exam Skin Exam: Normal Neurological Exam Neurological Exam: Normal Psychiatric Exam Psychiatric Exam: Normal Results Hemoglobin/Hematocrit: Hgb 10.0 g/dL (11.2-15.7) L 05/31/22 07:00 Hct 30.5 % (36.0-46.0) L 05/31/22 07:00 Abnormal Lab Findings: Abnormal Labs 05/29/22 05/31/22 10:45 07:00 WBC 15.82 H RBC 3.36 L Hgb 10.0 L Hct 35.0 L 30.5 L Plt Count 122 L MPV 12.0 H 11.8 H
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
== END 2022-05-31 01:30 | disposition home or self-care (01) | DRG 806 ==
LOC: OBS 10:52 → BCD 14:55
PROVIDERS: Admitting Provider Advanced Practice Midwife; Visit Provider Advanced Practice Midwife
DX: O36.5930 Maternal care for other known or suspected poor fetal growth, third trimester, not applicable or unspecified (principal); O36.0930 Maternal care for other rhesus isoimmunization, third trimester, not applicable or unspecified; Z37.0 Single live birth; O72.1 Other immediate postpartum hemorrhage; Z3A.38 38 weeks gestation of pregnancy; O71.82 Other specified trauma to perineum and vulva; O99.02 Anemia complicating childbirth; D64.9 Anemia, unspecified; Z86.16 Personal history of COVID-19
CPT/HCPCS: 36415; 85027; 85461; 86850; 86900; 86901; 87635; 90384; 59025; 86870; J2590; J2790